=== PATIENT | female | born 1990 | race Caucasian/White ===

== ENCOUNTER 2016-09-30 19:30 | Emergency (ER) | payer OTHER ==
[~2016-09-30] VITALS: Ht 157.5 cm; Wt 57.5 kg
[2016-09-30 19:33] VITALS: BP 124/84
[2016-09-30] MEDS ORDERED: BCP (19:46)
[2016-09-30] MEDS ORDERED: DEXAMETHASONE 4 MG TABLET ONE (19:50)
[2016-09-30] MEDS ORDERED: DEXAMETHASONE 4 MG TABLET PO STA (19:54)
== END 2016-09-30 20:06 | disposition home or self-care (01) ==
LOC: ED 19:58
DX: J02.8 Acute pharyngitis due to other specified organisms (principal); J01.00 Acute maxillary sinusitis, unspecified; K08.89 Other specified disorders of teeth and supporting structures; Z88.2 Allergy status to sulfonamides
CPT/HCPCS: 99283